=== PATIENT | male | born 1955 | race Caucasian/White ===

== ENCOUNTER 2016-07-27 10:16 | Outpatient (CLI) | payer OTHER ==
--- NOTE | 2016-07-27 14:45 | DIAGNOSTIC IMAGING REPORT ---
PROCEDURE: CT IVP CLINICAL INDICATION: IVP- NEOPLASM OF UNCERTAIN BEHAVIOR OF SKIN OF ABD TECHNIQUE: Preliminary AP and lateral hot dip plating supervisor views of the abdomen were obtained. Subsequently, noncontrast axial images were obtained of the entire abdomen and pelvis. 150 ml of Isovue 300 was injected intravenously, and axial images were obtained of the abdomen and pelvis with biphasic imaging of the liver and kidneys, followed by sagittal and coronal reformations. Postinjection AP hot dip plating supervisor view of the abdomen was also obtained. COMPARISON: CT IVP 09/12/2015. FINDINGS: NONCONTRAST ABDOMEN: No urinary calculi. CONTRAST ABDOMEN: Stable 2 cm mid right renal cortical cyst. There are several stable additional sub centimeter bilateral renal cysts. Normal bilateral renal excretion and ureters. No hydronephrosis or renal mass. Lung base are clear. Heart size is normal. Liver, gallbladder, pancreas, spleen (splenule) and adrenal glands are normal. Normal abdominal aorta. Nonspecific bowel gas pattern. NONCONTRAST PELVIS: Normal bladder. CONTRAST PELVIS: Normal bladder. Enlarged prostate (4.8 cm). Normal appendix. Stable 2.9 cm right pelvic soft tissue mass/lymph node. Trace of free fluid. Mild degenerative changes of the spine. IMPRESSION: 1. Bilateral renal cysts, otherwise negative urinary tract. 2. Mildly enlarged prostate 3. Stable 2.9 cm right perirectal lymph nodes/mass. All CT scans at this facility use dose modulation, iterative reconstruction, and/or weight-based dosing when appropriate to reduce radiation dose to as low as reasonably achievable.
--- NOTE | 2016-07-27 14:45 | DIAGNOSTIC IMAGING REPORT ---
PROCEDURE: CT IVP CLINICAL INDICATION: IVP- NEOPLASM OF UNCERTAIN BEHAVIOR OF SKIN OF ABD TECHNIQUE: Preliminary AP and lateral wholesale diamond [employer] views of the abdomen were obtained. Subsequently, noncontrast axial images were obtained of the entire abdomen and pelvis. 150 ml of Isovue 300 was injected intravenously, and axial images were obtained of the abdomen and pelvis with biphasic imaging of the liver and kidneys, followed by sagittal and coronal reformations. Postinjection AP wholesale diamond broker view of the abdomen was also obtained. COMPARISON: CT IVP 09/12/2015. FINDINGS: NONCONTRAST ABDOMEN: No urinary calculi. CONTRAST ABDOMEN: Stable 2 cm mid right renal cortical cyst. There are several stable additional sub centimeter bilateral renal cysts. Normal bilateral renal excretion and ureters. No hydronephrosis or renal mass. Lung base are clear. Heart size is normal. Liver, gallbladder, pancreas, spleen (splenule) and adrenal glands are normal. Normal abdominal aorta. Nonspecific bowel gas pattern. NONCONTRAST PELVIS: Normal bladder. CONTRAST PELVIS: Normal bladder. Enlarged prostate (4.8 cm). Normal appendix. Stable 2.9 cm right pelvic soft tissue mass/lymph node. Trace of free fluid. Mild degenerative changes of the spine. IMPRESSION: 1. Bilateral renal cysts, otherwise negative urinary tract. 2. Mildly enlarged prostate 3. Stable 2.9 cm right perirectal lymph nodes/mass. All CT scans at this facility use dose modulation, iterative reconstruction, and/or weight-based dosing when appropriate to reduce radiation dose to as low as reasonably achievable.
== END 2016-07-27 23:00 ==
LOC: CT SRH 10:16
DX: D48.5 Neoplasm of uncertain behavior of skin (principal); N28.1 Cyst of kidney, acquired; N40.0 Benign prostatic hyperplasia without lower urinary tract symptoms